=== PATIENT | male | born 1955 | race Caucasian/White ===

== ENCOUNTER → 2021-12-18 | Outpatient (CLI) | payer MEDICARE ==
--- NOTE | 2021-12-18 14:39 | RAD ---
XR CHEST 2V History: Reason: CONGESTION / Spl. Instructions: / History: Comparison: None. Findings: No consolidation or pleural effusion. Normal heart size. No pneumothorax. Impression: 1. No acute cardiopulmonary process. Electronically signed by: Carlos Ceja DO (12/18/2021 2:37 PM) [id number]
== END ==
LOC: PMG 14:15
PROVIDERS: ATTEND Nurse Practitioner Family
DX: J22 Unspecified acute lower respiratory infection (principal)
CPT/HCPCS: 71046